=== PATIENT | male | born 1980 | race Two or more races ===

== ENCOUNTER 2024-09-24 21:47 | Emergency (ER) | payer SELFPAY ==
[2024-09-24] MEDS ORDERED: Sodium Chloride 0.9% 10 ML Syringe FLUSH PRN (21:58)
[2024-09-24] MEDS ORDERED: Sodium Chloride 0.9% 2.5 ML Syringe FLUSH PRN (21:58)
[2024-09-24 22:03] LABS: BASOPHILS ABSOLUTE AUTO 0.03 K/uL (0.00-0.20); BASOPHILS PERCENT AUTO 0.4 % (0.0-1.0); EOSINOPHILS ABSOLUTE AUTO 0.02 K/uL (0.00-0.45); EOSINOPHILS PERCENT AUTO 0.2 % (0.0-6.0); HEMATOCRIT 45.7 % (42.0-52.0); HEMOGLOBIN 16.1 g/dL (14.0-18.0); IMMATURE GRAN ABSOLUTE AUTO 0.01 K/uL (0.00-0.05); IMMATURE GRAN PERCENT AUTO 0.1 % (0.0-0.4); LYMPHOCYTES ABSOLUTE AUTO 4.24 K/uL (1.00-4.80); LYMPHOCYTES PERCENT AUTO 51.3 % (24.0-44.0); MEAN CORPUSCULAR HEMOGLOBIN 30.2 pg (28.0-32.0); MEAN CORPUSCULAR HGB CONC 35.2 g/dL (32.0-36.0); MEAN CORPUSCULAR VOLUME 85.7 fL (83.0-99.0); MEAN PLATELET VOLUME 8.8 fL (9.4-12.4); MONOCYTES ABSOLUTE AUTO 0.62 K/uL (0.00-0.80); MONOCYTES PERCENT AUTO 7.5 % (0.0-8.0); NEUTROPHILS ABSOLUTE AUTO 3.34 K/uL (1.80-7.70); NEUTROPHILS PERCENT AUTO 40.5 % (41.0-71.0); PLATELET COUNT,PLT 420 K/uL (150-400); RED BLOOD CELL COUNT 5.33 M/uL (4.52-5.90); WHITE BLOOD CELL COUNT,WBC 8.26 K/uL (3.9-11.3)
[2024-09-24 22:40] LABS: A/G RATIO 0.9 (0.9-1.6); ALANINE AMINOTRANSFERASE,ALT 39 IU/L (14-63); ALBUMIN 3.7 g/dL (3.4-5.0); ALKALINE PHOSPHATASE 82 U/L (46-116); ASPARTATE AMNIOTRANSFERASE,AST 38 IU/L (15-37); BILIRUBIN TOTAL 0.4 mg/dL (0.2-1.0); BLOOD UREA NITROGEN,BUN 13 mg/dL (7.0-18.0); CALCIUM 8.3 mg/dL (8.5-10.1); CARBON DIOXIDE,CO2 23.8 mmol/L (21.0-32.0); CHLORIDE,CL 105 mmol/L (98-107); CREATININE 1.3 mg/dL (0.8-1.3); GLUCOSE RANDOM 138 mg/dL (74-106); POTASSIUM,K 3.3 mmol/L (3.5-5.1); PROTEIN TOTAL,TP 7.8 g/dL (6.4-8.2); SODIUM,NA 144 mmol/L (136-148); TSH ULTRASENSITIVE 4.13 uIU/mL (0.36-3.74)
[2024-09-24 22:43] LABS: ESTIMATED GFR 70 mL/min (>60); ETHANOL BLOOD MEDICAL 400 mg/dL
== END 2024-09-24 23:22 ==
LOC: MW.ED 21:47
DX: F10.129 Alcohol abuse with intoxication, unspecified (principal); Z75.8 Other problems related to medical facilities and other health care
CPT/HCPCS: 36415; 80053; 80307; 84443; 85025; 99284

== ENCOUNTER 2024-10-19 22:44 | Emergency (ER) | payer SELFPAY | END 2024-10-20 03:32 | LOC: MW.ED 22:44 | DX: F10.120 Alcohol abuse with intoxication, uncomplicated (principal); Y90.9 Presence of alcohol in blood, level not specified; Z75.8 Other problems related to medical facilities and other health care | CPT/HCPCS: 99284 ==

== ENCOUNTER 2024-10-21 23:24 | Emergency (ER) | payer SELFPAY | END 2024-10-22 00:43 | LOC: MW.ED 23:24 | DX: F10.10 Alcohol abuse, uncomplicated (principal) | CPT/HCPCS: 99284 ==

== ENCOUNTER 2024-10-22 14:52 | Emergency (ER) | payer SELFPAY ==
[2024-10-22 15:52] LABS: BASOPHILS ABSOLUTE AUTO 0.05 K/uL (0.00-0.20); BASOPHILS PERCENT AUTO 0.5 % (0.0-1.0); EOSINOPHILS ABSOLUTE AUTO 0.01 K/uL (0.00-0.45); EOSINOPHILS PERCENT AUTO 0.1 % (0.0-6.0); IMMATURE GRAN ABSOLUTE AUTO 0.05 K/uL (0.00-0.05); IMMATURE GRAN PERCENT AUTO 0.5 % (0.0-0.4); LYMPHOCYTES ABSOLUTE AUTO 2.08 K/uL (1.00-4.80); LYMPHOCYTES PERCENT AUTO 20.9 % (24.0-44.0); MEAN CORPUSCULAR HEMOGLOBIN 29.9 pg (28.0-32.0); MEAN CORPUSCULAR HGB CONC 34.1 g/dL (32.0-36.0); MEAN CORPUSCULAR VOLUME 87.6 fL (83.0-99.0); MEAN PLATELET VOLUME 8.8 fL (9.4-12.4); MONOCYTES ABSOLUTE AUTO 0.47 K/uL (0.00-0.80); MONOCYTES PERCENT AUTO 4.7 % (0.0-8.0); NEUTROPHILS ABSOLUTE AUTO 7.29 K/uL (1.80-7.70); NEUTROPHILS PERCENT AUTO 73.3 % (41.0-71.0); PLATELET COUNT,PLT 473 K/uL (150-400); RED BLOOD CELL COUNT 5.02 M/uL (4.52-5.90); WHITE BLOOD CELL COUNT,WBC 9.95 K/uL (3.9-11.3)
[2024-10-22 16:14] LABS: A/G RATIO 0.9 (0.9-1.6); ALANINE AMINOTRANSFERASE,ALT 42 IU/L (14-63); ALBUMIN 3.6 g/dL (3.4-5.0); ALKALINE PHOSPHATASE 90 U/L (46-116); ASPARTATE AMNIOTRANSFERASE,AST 51 IU/L (15-37); BILIRUBIN TOTAL 0.9 mg/dL (0.2-1.0); BLOOD UREA NITROGEN,BUN 19 mg/dL (7.0-18.0); CALCIUM 8.4 mg/dL (8.5-10.1); CARBON DIOXIDE,CO2 18.3 mmol/L (21.0-32.0); CHLORIDE,CL 99 mmol/L (98-107); CREATININE 1.4 mg/dL (0.8-1.3); GLUCOSE RANDOM 111 mg/dL (74-106); POTASSIUM,K 4.2 mmol/L (3.5-5.1); PROTEIN TOTAL,TP 7.8 g/dL (6.4-8.2); SODIUM,NA 138 mmol/L (136-148)
[2024-10-22 16:21] LABS: ESTIMATED GFR 64 mL/min (>60); ETHANOL BLOOD MEDICAL 317 mg/dL
[2024-10-22] MEDS: Aspirin 81 MG Tab.Chew PO ONE (16:51)
[2024-10-22] MEDS: Acetaminophen 500 MG Tab PO ONE (16:51)
== END 2024-10-22 17:36 | disposition home or self-care (01) ==
LOC: MW.ED 14:52
DX: Z02.89 Encounter for other administrative examinations (principal); I10 Essential (primary) hypertension; F17.210 Nicotine dependence, cigarettes, uncomplicated; Z75.8 Other problems related to medical facilities and other health care
CPT/HCPCS: 36415; 71045; 80053; 80307; 84484; 85025; 93005; 99285; A9270; 93010

== ENCOUNTER 2024-10-28 23:43 | Inpatient (IN) | payer SELFPAY ==
[2024-10-29] MEDS ORDERED: Sodium Chloride 0.9% 2.5 ML Syringe FLUSH PRN (00:16)
[2024-10-29] MEDS ORDERED: Sodium Chloride 0.9% 20 ML SDV IV PRN (00:16)
[2024-10-29] MEDS ORDERED: Sodium Chloride 0.9% 10 ML Syringe FLUSH PRN (00:16)
[2024-10-29] MEDS: Sodium Chloride 0.9% 1,000 ML IV ONE (00:22)
[2024-10-29 00:34] LABS: BASOPHILS ABSOLUTE AUTO 0.02 K/uL (0.00-0.20); BASOPHILS PERCENT AUTO 0.3 % (0.0-1.0); HEMATOCRIT 50.8 % (42.0-52.0); HEMOGLOBIN 17.3 g/dL (14.0-18.0); IMMATURE GRAN ABSOLUTE AUTO 0.03 K/uL (0.00-0.05); IMMATURE GRAN PERCENT AUTO 0.4 % (0.0-0.4); LYMPHOCYTES ABSOLUTE AUTO 0.53 K/uL (1.00-4.80); LYMPHOCYTES PERCENT AUTO 6.7 % (24.0-44.0); MEAN CORPUSCULAR HEMOGLOBIN 29.7 pg (28.0-32.0); MEAN CORPUSCULAR HGB CONC 34.1 g/dL (32.0-36.0); MEAN CORPUSCULAR VOLUME 87.1 fL (83.0-99.0); MONOCYTES ABSOLUTE AUTO 0.25 K/uL (0.00-0.80); MONOCYTES PERCENT AUTO 3.2 % (0.0-8.0); NEUTROPHILS ABSOLUTE AUTO 7.09 K/uL (1.80-7.70); NEUTROPHILS PERCENT AUTO 89.4 % (41.0-71.0); PLATELET COUNT,PLT 288 K/uL (150-400); RED BLOOD CELL COUNT 5.83 M/uL (4.52-5.90); WHITE BLOOD CELL COUNT,WBC 7.92 K/uL (3.9-11.3)
[2024-10-29 00:54] LABS: A/G RATIO 0.8 (0.9-1.6); ALBUMIN 3.8 g/dL (3.4-5.0); BILIRUBIN TOTAL 0.6 mg/dL (0.2-1.0); CARBON DIOXIDE,CO2 20.3 mmol/L (21.0-32.0); CREATININE 1.5 mg/dL (0.8-1.3); EST CRCL DRUG DOSING (CG) 55.24 mL/min; POTASSIUM,K 4.2 mmol/L (3.5-5.1); PROTEIN TOTAL,TP 8.7 g/dL (6.4-8.2)
[2024-10-29] MEDS: LORazepam 2 MG/ML SDV IVPUSH ONE ×2 (05:50→06:23)
[2024-10-29] MEDS: chlordiazePOXIDE 25 MG Cap PO ONE (05:50)
[2024-10-29] MEDS: PHENobarbitaL sodium 260 MG in Sodium Chloride 0.9% 100 ML IV ONE (10:51)
[2024-10-29] MEDS ORDERED: Acetaminophen 650 MG Supp RECTAL PRN (12:35)
[2024-10-29] MEDS ORDERED: Polyethylene Glycol 3350 Powder 17 GM Packet PO PRN (12:35)
[2024-10-29] MEDS ORDERED: Melatonin 3 MG Tab PO PRN (12:35)
[2024-10-29] MEDS ORDERED: Sodium Chloride 0.9% 1,000 ML IV SCH (12:45)
[2024-10-29] MEDS ORDERED: PHENobarbital 32.4 MG Tab PO PRN (14:08)
[2024-10-29] MEDS: Pantoprazole 40 MG in Sodium Chloride 0.9% 10 ML IVPUSH SCH (14:18)
[2024-10-29] MEDS: PHENobarbital 32.4 MG Tab PO PRN (14:18)
[2024-10-29] MEDS: Folic Acid 1 MG/0.2 ML UD Syringe IV SCH (14:18)
[2024-10-29] MEDS: Thiamine 200 MG/2 ML MDV IVPUSH SCH (14:18)
[2024-10-29] MEDS: Sodium Chloride 0.9% 1,000 ML IV SCH (17:34)
[2024-10-29] MEDS: Acetaminophen 325 MG Tab PO PRN (20:24)
[2024-10-29] MEDS: Ondansetron 4 MG/2 ML SDV IVPUSH PRN (20:25)
[2024-10-29] MEDS: PHENobarbitaL sodium 260 MG in Sodium Chloride 0.9% 100 ML IV PRN (21:44)
[2024-10-29] MEDS: PHENobarbital Sodium 130 MG/ML SDV ONE (22:20)
[2024-10-30] MEDS: PHENobarbital Sodium 130 MG/ML SDV IVPUSH PRN (05:36)
[2024-10-30 05:57] LABS: BASOPHILS ABSOLUTE AUTO 0.01 K/uL (0.00-0.20); BASOPHILS PERCENT AUTO 0.2 % (0.0-1.0); EOSINOPHILS ABSOLUTE AUTO 0.05 K/uL (0.00-0.45); EOSINOPHILS PERCENT AUTO 1.2 % (0.0-6.0); HEMATOCRIT 35.7 % (42.0-52.0); HEMOGLOBIN 12.4 g/dL (14.0-18.0); IMMATURE GRAN ABSOLUTE AUTO 0.01 K/uL (0.00-0.05); IMMATURE GRAN PERCENT AUTO 0.2 % (0.0-0.4); LYMPHOCYTES ABSOLUTE AUTO 1.24 K/uL (1.00-4.80); LYMPHOCYTES PERCENT AUTO 30.2 % (24.0-44.0); MEAN CORPUSCULAR HEMOGLOBIN 29.9 pg (28.0-32.0); MEAN CORPUSCULAR HGB CONC 34.7 g/dL (32.0-36.0); MEAN PLATELET VOLUME 9.4 fL (9.4-12.4); MONOCYTES ABSOLUTE AUTO 0.38 K/uL (0.00-0.80); MONOCYTES PERCENT AUTO 9.2 % (0.0-8.0); NEUTROPHILS ABSOLUTE AUTO 2.42 K/uL (1.80-7.70); PLATELET COUNT,PLT 157 K/uL (150-400); RED BLOOD CELL COUNT 4.15 M/uL (4.52-5.90); WHITE BLOOD CELL COUNT,WBC 4.11 K/uL (3.9-11.3)
[2024-10-30 06:16] LABS: A/G RATIO 0.8 (0.9-1.6); BILIRUBIN TOTAL 1.5 mg/dL (0.2-1.0); CALCIUM 7.9 mg/dL (8.5-10.1); CARBON DIOXIDE,CO2 27.1 mmol/L (21.0-32.0); CREATININE 1.1 mg/dL (0.8-1.3); EST CRCL DRUG DOSING (CG) 75.32 mL/min; MAGNESIUM 1.8 mg/dL (1.8-2.4); PHOSPHORUS 2.8 mg/dL (2.6-4.7); POTASSIUM,K 3.4 mmol/L (3.5-5.1); PROTEIN TOTAL,TP 6.7 g/dL (6.4-8.2)
[2024-10-30] MEDS: Potassium Chloride 20 MEQ Tab.ER PO ONE (08:33)
[2024-10-30] MEDS: PHENobarbital 32.4 MG Tab PO PRN (19:39)
== END 2024-10-30 23:55 | disposition left against medical advice (07) | DRG 894 ==
LOC: MW.ED 23:43 → MW.MS 10-29 10:38 → MW.ICU 10-29 21:40
PROVIDERS: ADMIT Family Medicine; ATTEND Family Medicine
PROC: HZ2ZZZZ Detoxification Services for Substance Abuse Treatment (ICD-10-PCS; principal; 2024-10-29)
DX: F10.131 Alcohol abuse with withdrawal delirium (principal); N17.9 Acute kidney failure, unspecified; I10 Essential (primary) hypertension; E86.0 Dehydration; F32.A Depression, unspecified; F41.9 Anxiety disorder, unspecified; F10.129 Alcohol abuse with intoxication, unspecified; Y90.8 Blood alcohol level of 240 mg/100 ml or more; R45.1 Restlessness and agitation; F29 Unspecified psychosis not due to a substance or known physiological condition; Z53.29 Procedure and treatment not carried out because of patient's decision for other reasons
CPT/HCPCS: 36415; 80053; 80307; 83735; 84100; 85025; 96361; 96374; 99285-25; A9270-GY; J2060; J2405; J2470; J2560; J3360; J3411; J3490; J7030